=== PATIENT | male | born 1950 | race Caucasian/White ===

== ENCOUNTER 2017-09-13 18:43 | Emergency (ER) | payer MEDICARE, BC ==
[~2017-09-13] VITALS: Ht 177.8 cm; Wt 93.0 kg
[~2017-09-13 18:43] MED LIST: ALBUTEROL0.09 MG/A1 IH; ASPIRIN81 MG PO; BRILINTA90 M1 PO; LEVOFLOXACIN 7750 M1 PO; LIPITOR40 MG PO; LISINOPRIL5 MG NG; METOPROLOL25 MG PO; NAPROSYN 500MG500 MG PO; NEXIUM40 MG PO; NOMEDS; TRAMADOL 50MG T50 M1 PO; ZITHROMAX Z PA250 MG PO; ZITHROMAX Z-PA250 M1 PO
[2017-09-13] MEDS ORDERED: LISINOPRIL10 MG PO (18:52)
[2017-09-13] MEDS ORDERED: ATORVASTATIN CA80 MG PO (18:52)
--- OUTSIDE RECORDS SUMMARY | 2017-09-13 19:00 | External Medical Summary Rpt | CCD ---
Author Author [employer]ent Organization [employer] Address Unknown Phone Unavailable Purpose Continuity of Care Document - through 2016
--- OUTSIDE RECORDS SUMMARY | 2017-09-13 19:00 | External Medical Summary Rpt | CCD ---
Author Author , RUIZ MELCHOR Address Unknown Phone [email or web address] Care Team Providers Care City Constable Name Role Phone Glen Hansen MD, Unavailable Unavailable Glen Hansen MD Purpose Continuity of Care Document - 01-08-2014 through 2016 Problems Code Diagnosis DOS Provider Status 305.1 305.1 01-10-2014 [place] TOBACCO USE [facility] [place] [phone] 01-10-2014 [place] PNEUMONIA, [facility] NOS Allergies, Adverse Reactions, Alerts Type Allergy to substance Adverse Reaction to Substance Substance Reaction Severity NO KNOWN ALLERGIES Unknown Unknown Medications Na ND Rx Da Fi Fi Am Da Di Ph RX Ph St me C No te ll ll ou ys ag ar # ys at rm s nt no ma ic us Or Da si cy ia de te s n re d IN 49 02 0 No FL 28 -2 UE 10 0- Lo NZ 39 20 ng A 21 14 er 5 RU Ac S ti VA ve CC IN E 0. 5M L PN 00 02 0 No EU 00 -2 MO 64 0- Lo VA 94 20 ng X 30 14 er 23 0 Ac ti AL ve IP 00 02 1 No RA 48 -1 T- 70 9- Lo AL 20 20 ng BU 10 14 er T 1 0. Ac 5- ti 3( ve 2. 5) MG /3 ML LO 00 02 1 No VE 07 -1 NO 50 9- Lo X 62 20 ng 40 04 14 er 1 MG Ac /0 ti .4 ve ML SY RI NG E AZ 00 02 1 No IT 40 -1 HR 90 9- Lo OM 14 20 ng YC 41 14 er IN 1 Ac I. ti V. ve 50 0 MG AL CE 00 02 1 No FT 40 -1 RI 97 9- Lo AX 33 20 ng ON 30 14 er E 4 1 Ac GM ti ve AL SO 00 02 1 No DI 40 -1 UM 97 9- Lo 10 20 ng CH 16 14 er LO 6 RI Ac DE ti ve 0. 9% SO LN CE 00 02 1 No FT 40 -1 RI 97 8- Lo AX 33 20 ng ON 30 14 er E 4 1 Ac GM ti ve AL SO 00 02 1 No DI 40 -1 UM 97 8- Lo 10 20 ng CH 16 14 er LO 6 RI Ac DE ti ve 0. 9% SO LN Sa 63 02 1 No li 80 -1 ne 70 8- Lo 10 20 ng Fl 07 14 er us 5 h Ac 10 ti ML ve Sy ri ng e Vital Signs 01-10-2014 09:13 Name Value Interpretat Reference Comment ion Range Body 97.9 [degF] Temperature BP 80 mm[Hg] Diastolic BP Systolic 131 mm[Hg] Heart 76 /min Rate/Pulse Respiratory 20 /min Rate 01-10-2014 08:00 Name Value Interpretat Reference Comment ion Range O2% 96 % 01-08-2014 21:31 Name Value Interpretat Reference Comment ion Range Height 177.80 cm Weight 90.039 kg Measured 01-08-2014 18:46 Name Value Interpretat Reference Comment ion Range Body 99.4 [degF] Temperature BP 68 mm[Hg] Diastolic BP Systolic 131 mm[Hg] Heart 94 /min Rate/Pulse O2% 87 % Respiratory 20 /min Rate Weight 0 [oz_av] Measured Results Labs Lab Lab Date Result Refere Interp Status Commen Order Detail nces retati t Range on CBC with AUTO DIFF (01-09-2014 06:30) WBC # 01-09- 7.8 4.8-10. complet Bld 014 K/MM3 8 ed Auto 06:30 RBC # 01-09-2 5.00 4.6-6.2 complet Bld 014 M/mm3 ed Auto 06:30 Hgb 14.4 14.1-18 complet Bld-mCn 014 g/dL .0 ed c 06:30 Hct Fr 42.8 % 42.0-52 complet Bld 014 .0 ed 06:30 MCV RBC 85.7 fl 82.2-97 complet 014 .8 ed 06:30 MCH RBC 28.8 pg 27-31.2 complet Qn 014 ed Auto 06:30 MEAN 33.6 31.8-35 complet CORPUSC 014 g/dl .4 ed ULAR 06:30 HGB CONC RDW RBC -19-2 13.7 % 11.5-17 complet Auto 014 .5 ed 06:30 Platele 02-19-2 296 142-424 complet t Bld 014 K/mm3 ed Ql 06:30 Manual MEAN 19-2 7.9 fl 7.4-10. complet PLATELE 014 4 ed T 06:30 VOLUME Granulo -19-2 70.0 % 37.0-80 complet cytes 014 .0 ed Fr Bld 06:30 Auto LYMPH % 02-19-2 23.2 % 10-50 complet 014 ed 06:30 Monocyt 02-19-2 4.9 % 1.7-9.3 complet es Fr 014 ed Bld 06:30 Auto Eosinop 02-19-2 1.6 % 0.1-12. complet hil Fr 014 0 ed Bld 06:30 Auto Basophi 02-19-2 0.2 % 0.1-2.0 complet ls Fr 014 ed Bld 06:30 Auto Granulo -19-2 5.5 1.3-8.0 complet cytes # 014 K/mm3 ed Bld 06:30 Auto Lymphoc 02-19-2 1.8 0.7-4.5 complet ytes Fr 014 K/mm3 ed Bld 06:30 Auto Monocyt 02-19-2 0.4 0.1-1.0 complet es # 014 K/mm3 ed Bld 06:30 Auto Eosinop 02-19-2 0.1 0.0-0.4 complet hil # 014 K/mm3 ed Bld 06:30 Auto Basophi 02-19-2 0.0 0-0.2 complet ls # 014 K/MM3 ed Bld 06:30 Auto COMPREHENSIVE METABOLIC PANEL (01-08-2014 19:00) Glucose 18-2 104 74-106 complet 014 mg/dL ed Bld-mCn 19:00 c BUN 18-2 16 7-18 complet Bld-mCn 014 mg/dL ed c 19:00 Creat 18-2 1.1 0.8-1.3 complet SerPl-m 014 mg/dL ed Cnc 19:00 Creat 18-2 90 50-200 complet Cl 014 ML/MIN ed predict 19:00 ed SerPl C-G-vRa te GFR/BSA 68 Greater complet .pred 014 ML/MIN than ed SerPl 19:00 60 Schwart z-vRate Sodium 136 136-145 complet SerPl-s 014 mmoL/L ed Cnc 19:00 Potassi 4.1 3.5-5.1 complet um 014 mmoL/L ed SerPl-s 19:00 Cnc Chlorid 100 98-107 complet e 014 mmoL/L ed SerPl-s 19:00 Cnc CO2 28 21.0-32 complet SerPl-s 014 mmoL/L .0 ed Cnc 19:00 Calcium 8.4 8.5-10. complet 014 mg/dL 1 ed SerPl-m 19:00 Cnc Prot 7.0 6.4-8.2 complet SerPl-m 014 gm/dL ed Cnc 19:00 Albumin 01-08- 3.6 3.4-5.0 complet 014 gm/dL ed SerPl-m 19:00 Cnc Globuli 3.4 1.3-3.2 complet n 014 gm/dL ed Ser-mCn 19:00 c Albumin 01-08- 1.1 UNK 1.1-1.8 complet /Glob 014 ed SerPl-m 19:00 Rto Bilirub 0.7 0.2-1.0 complet 014 mg/dL ed SerPl-m 19:00 Cnc AST 01-08- 19 U/L 15-37 complet SerPl-c 014 ed Cnc 19:00 ALT 01-08- 36 U/L 12-78 complet SerPl-c 014 ed Cnc 19:00 ALP 01-08- 94 U/L 50-136 complet SerPl-c 014 ed Cnc 19:00 BNP Bld-mCnc (01-08-2014 19:00) BNP 18-2 Less 0-100 complet Bld-mCn 014 than 5 ed c 19:00 pg/mL CBC with AUTO DIFF (01-08-2014 19:00) WBC # 02-18-2 9.3 4.8-10. complet Bld 014 K/MM3 8 ed Auto 19:00 RBC # 02-18-2 4.81 4.6-6.2 complet Bld 014 M/mm3 ed Auto 19:00 Hgb 02-18-2 13.8 14.1-18 complet Bld-mCn 014 g/dL .0 ed c 19:00 Hct Fr 02-18-2 40.9 % 42.0-52 complet Bld 014 .0 ed 19:00 MCV RBC 02-18-2 85.0 fl 82.2-97 complet 014 .8 ed 19:00 MCH RBC 02-18-2 28.7 pg 27-31.2 complet Qn 014 ed Auto 19:00 MEAN 02-18-2 33.8 31.8-35 complet CORPUSC 014 g/dl .4 ed ULAR 19:00 HGB CONC RDW RBC -18-2 12.9 % 11.5-17 complet Auto 014 .5 ed 19:00 Platele 02-18-2 290 142-424 complet t Bld 014 K/mm3 ed Ql 19:00 Manual MEAN 18-2 8.2 fl 7.4-10. complet PLATELE 014 4 ed T 19:00 VOLUME Granulo 02-18-2 84.1 % 37.0-80 complet cytes 014 .0 ed Fr Bld 19:00 Auto LYMPH % 02-18-2 10.8 % 10-50 complet 014 ed 19:00 Monocyt 02-18-2 4.0 % 1.7-9.3 complet es Fr 014 ed Bld 19:00 Auto Eosinop 02-18-2 0.9 % 0.1-12. complet hil Fr 014 0 ed Bld 19:00 Auto Basophi 02-18-2 0.2 % 0.1-2.0 complet ls Fr 014 ed Bld 19:00 Auto Granulo 02-18-2 7.8 1.3-8.0 complet cytes # 014 K/mm3 ed Bld 19:00 Auto Lymphoc 02-18-2 1.0 0.7-4.5 complet ytes Fr 014 K/mm3 ed Bld 19:00 Auto Monocyt 02-18-2 0.4 0.1-1.0 complet es # 014 K/mm3 ed Bld 19:00 Auto Eosinop 02-18-2 0.1 0.0-0.4 complet hil # 014 K/mm3 ed Bld 19:00 Auto Basophi 0.0 0-0.2 complet ls # 014 K/MM3 ed Bld 19:00 Auto MYCOPLASMA IGM (RAPID) (01-08-2014 19:00) MYCOPLA NON-YOVANY NONREAC complet SMA IGM 014 CTIVE TIVE ed 19:00 (RAPID) Encounters Encounter Start End Date Code Location Performer Type Date Inpatient IMP Yasir Hansen MD ([place]) 4 18:59 4 09:15 [facility]
--- OUTSIDE RECORDS SUMMARY | 2017-09-13 19:00 | External Medical Summary Rpt | CCD ---
Author Author , RUIZ MELCHOR Address Unknown Phone [email or web address] Care Team Providers Care Account Installation Specialist Name Role Phone Glen Hansen MD, Unavailable Unavailable Glen Hansen MD Purpose Continuity of Care Document - 01-08-2014 through 2016 Problems Code Diagnosis DOS Provider Status 305.1 305.1 01-10-2014 [place] TOBACCO USE [facility] [phone] 01-10-2014 [place] PNEUMONIA, [facility] NOS Allergies, Adverse Reactions, Alerts Type Allergy [...] Hansen MD ([place]) 4 18:59 4 09:15 [facility]
--- OUTSIDE RECORDS SUMMARY | 2017-09-13 19:01 | External Medical Summary Rpt | CCD ---
Author Author , RUIZ MELCHOR Address Unknown Phone [email or web address] Immunization Name Date Rout CVX Reac Dose Comm Prov Is Faci e tion ent ider Refu lity Give sed n Infl 10-2 135 999 Hist D203 No D203 uenz 4-20 oric 45 45 a, 16 al High Info rmat Dose ion - Sour ce Unsp ecif ied PPV2 10-2 33 999 Hist D203 No D203 3 4-20 oric 45 45 16 al Info rmat ion - Sour ce Unsp ecif ied
--- OUTSIDE RECORDS SUMMARY | 2017-09-13 19:01 | External Medical Summary Rpt | CCD ---
Author Author , RUIZ MELCHOR Address Unknown Phone [email or web address] Immunization Name Date Rout CVX Reac Dose [...]
--- OUTSIDE RECORDS SUMMARY | 2017-09-13 19:01 | External Medical Summary Rpt ---
Author Author RUIZ Motta, [employer] Organization [employer] Address Unknown Phone Unavailable
[2017-09-13 19:21] LABS: HEMOGLOBIN 15.1 g/dL (14.1-18.0); LYMPH # 0.3 K/mm3 (0.7-4.5); LYMPH % 6.1 % (10-50)
--- NOTE | 2017-09-13 19:44 | Emergency Room Report ---
History of Present Illness Time Seen by [email or web address] Presenting Problem in Triage Pt arrived:Walked Presenting Problem:PT REPORTS LOWER ABD PAIN AND CRAMPING, DIARRHEA, NAUSEA, BODY ACHES. 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 Y Clinical Suspician of Infection? N Mental Status: 1 - Regular (Normal Baseline) Sepsis Risk:Possible Sepsis Risk Have you (or family members/close friends) recently traveled outside the [place]? N If Yes, where/when: Have you had exposure to infectious disease within the past month? N TB? Other? Specify: Source patient, RN notes reviewed, family, RN/MD Exam Limitations no limitations Comment This is a 67-year-old male patient presenting to the emergency room with muscle aches, low back pain, nausea, vomiting and diarrhea since last night. At this time the patient advised that he is unable to hold down any solid foods or liquids. Patient denies any recent travel or recent exposure to sick contacts. ALLERGIES Coded Allergies: No Known Allergies (10/21/15) Home Medications Reported Medications Aspirin 81 MG PO DAILY Lisinopril 10 MG PO QHS #90 Atorvastatin Calcium 80 MG PO QHS #90 History Medical History General CAD? No Angina: Yes ME: Yes Hypertension? Yes Hyperlipidemia? Yes CHF? No DVT? No PE? No COPD? No Asthma? No Anemia? No GERD? Yes Gastric ulcers? No GI Bleed? No Hernia? No Thyroid Problems? No Hypothyroidism? No CVA? No Seizures? No Diabetes? No Renal Insuffiency? No End Stage Renal Disease? No UTI? No Stones? No GB Disease: No Nephritic Syndrome? No Asplenia? No Hepatitis? No Sickle Cell Disease? No Arthritis? No Migraines? No Cataracts? No Glaucoma? No MRSA? No HIV? No TB? No Anxiety? No Depression? No Cancer? No More? No Immunization Hx DT/Tetanus Unknown Flu 2012-FSN Pneumonia 01/10/2014 Surgical Hx Previous Surgery?Y EXCISION OF CYST IN GROIN TONSILLECTOMY CARDIAC STENT R SHOULDER Family History Family Hx Diabetes No CAD Yes Hypertension Yes Hyperlipidemia Yes Cancer No TB No Social History Smoking Hx Smoker: Former Smoker Tobacco: No Packs/day < 1 Pack Alcohol Alcohol: No Review of Systems All Other Systems Reviewed and Negative Gastrointestinal see HPI, abdominal pain, diarrhea, nausea, vomiting Physical Exam Vital Signs Vital Signs Date Time Temp Pulse Resp B/P Pulse O2 O2 Flow FiO2 Ox Delivery Rate 09/13 2206 100.1 88 18 97/66 94 09/13 2205 100.1 88 18 97/66 94 09/13 2143 99.5 86 18 110/65 96 09/13 2053 86 14 131/79 94 09/13 2018 100.2 83 24 129/75 93 2 09/13 1957 20 09/13 1936 93 16 127/71 93 09/13 1847 99.4 101 20 143/107 94 General Appearance normal appearance, WD/WN, moderate distress Respiratory Status Yes: trachea midline, chest symmetrical, non tender chest. No: respiratory distress. Lung Sounds bilateral: normal breath sounds, lungs clear. Cardiovascular normal exam, regular rate/rhythm, no peripheral edema, no gallop, no JVD, no murmur, no rub, normal peripheral pulses Peripheral Pulses Pulses normal Yes Gastrointestinal normal bowel sounds, soft, no organomegaly, no guarding, no rebound, tenderness (LLQ) Extremities non-tender, normal range of motion, normal inspection Neurologic alert, normal exam, no motor/sensory deficits, oriented x 3 Mental status normal mood/affect Skin intact, normal color, warm/dry Medical Decision Making LABS/Meds/Orders Pt receiving controlled substance in ED? No Comment 20:00 - patient has episode of vomiting, will be rechecked his found to be febrile with a temperature of 103.7F. advise nurse to administer one dose of Tylenol. 2129 - upon patient's reevaluation he appears medically stable, clinically improving, not afebrile and with no further episodes of nausea/vomiting. Discussed with patient in length, advised of findings, as well as need for follow-up, if no better, within 2 days with PCP. Patient advised to alternate Motrin with Tylenol for fever control. Results/Orders Laboratory Tests 09/13/171901: Amylase 93, Lipase 414 H 09/13/171899: Sodium 139, Potassium 4.4, Chloride 105, Carbon Dioxide 25, BUN 22 H, Creatinine 1.0, Estimated Creat Clear 94, Estimated GFR (MDRD) 75, Glucose 111 H, Calcium 8.5, Total Bilirubin 0.9, AST 28, ALT 31, Alkaline Phosphatase 80, Total Protein 7.1, Albumin 4.0, Globulin 3.1, Albumin/Globulin Ratio 1.3, WBC 5.3, RBC 5.11, Hgb 15.1, Hct 45.5, MCV 89.0, RDW 12.9, Plt Count 167, MPV 8.5, Gran % 87.5 H, Gran # 4.6, Total Counted 100, Lymphocytes % 6.1 L, Monocytes % 4.2, Eosinophils % 1.9, Basophils % 0.3, Neutrophils 89 H, Lymphocytes (Manual) 9 L, Lymphocytes # 0.3 L, Monocytes # 0.2, Eosinophils # 0.1, Eosinophils # ( Manual) 2, Basophils # 0.0, Platelet Estimate NORMAL, Anisocytosis 1+, PUBS MCHC 33.1, MCH 29.5 09/13/17 1855: Influenza Type A Ag DETECTED H, Influenza Type B Ag NOT DETECTED 09/13/171853: Urine Color Cancelled, Urine Appearance Cancelled, Urine pH Cancelled, Ur Specific [place] Cancelled Current Medication Orders Sig/Murphy Start time Last Medication Dose Route Stop Time Status Admin Promethazine HCl 0 .STK-MED ONE 09/13 2156 DC PO Promethazine HCl 1 JOSELO ONCE ONE 09/13 2145 DC 09/13 PO 09/13 Oseltamivir Phosphate 75 MG ONCE ONE 09/13 2100 DC 09/13 PO 09/13 Iopamidol 75 ML ONCE ONE 09/13 2045 DCD 09/13 IV 09/13 Oseltamivir Phosphate 75 MG ONCE ONE 09/13 2045 DC 09/13 PO 09/13 Sodium Chloride 10 ML ONCE ONE 09/13 2045 DCD 09/13 IV 09/13 Oseltamivir Phosphate 0 .STK-MED ONE 09/13 2039 DC PO Acetaminophen 0 .STK-MED ONE 09/13 2032 DC PO Acetaminophen 1,000 MG ONCE ONE 09/13 2030 DC 09/13 PO 09/13 Morphine Sulfate 6 MG ONCE ONE 09/13 2000 DC 09/13 IV 09/13 Morphine Sulfate 0 .STK-MED ONE 09/13 1956 DC .ROUTE Diphenoxylate HCl/ 0 .STK-MED ONE 09/13 1950 DC Atropine PO Loperamide HCl 0 .STK-MED ONE 09/13 1950 DC PO Ondansetron HCl 0 .STK-MED ONE 09/13 1950 DC .ROUTE Sodium Chloride 1,000 ML .STK-MED ONE 09/13 1950 DC IV Diphenoxylate HCl/ 5 MG ONCE ONE 09/13 1945 DC 09/13 Atropine PO 09/13 Loperamide HCl 4 MG ONCE ONE 09/13 1945 DC 09/13 PO 09/13 Ondansetron HCl 4 MG ONCE ONE 09/13 1945 DC 09/13 IV 09/13 Sodium Chloride 1,000 ML .Q1H1M 09/13 1945 DC 09/13 IV 09/13 Sodium Chloride 10 ML PRN PRN 09/13 1945 DCD IV 09/14 1944 Sodium Chloride 10 ML PRN PRN 09/13 1900 DCD IV 09/14 1854 Orders Procedure Date/time Status DIET-NOTHING BY MOUTH 09/14 B Active VITAL SIGNS 09/[address] ABD & PELVIS W/ CONTRAST 09/[address] ABD/PELVIS REQ 09/13 2005 Complete LIPASE 09/13 1941 Complete AMYLASE 09/13 1941 Complete DIFFERENTIAL-WBC 09/13 1900 Complete IV SALINE LOCK 09/13 1854 Active INFLUENZA A&B ANTIGENS 09/13 1854 Complete CBC WITH AUTO DIFF 09/13 1854 Complete CHEM 12 PROFILE 09/13 1854 Complete XRAY/CT/US XRAY/CT/US CT abdomen, pelvis (with IV contrast) CT interpretation by discussed w/radiologist CT Results see virtual radiology report Departure Departure Time of Disposition 2139 Disposition DC Home or Self Care(routine) Clinical Impression Primary Impression: Influenza A Condition STABLE Patient Instructions DI for Influenza -- Adult Additional Instructions Please drink plenty of fluids, take [id number] Imodium for diarrhea, Zofran ODT (prescription attached) as needed for nausea/vomiting. If not better please follow-up with your family physician within the next 2 days. Discharge Counseling Counseled pt/family regarding diagnosis, test results, medications/RX, home care, follow up needs Comment Please drink plenty of fluids, take [id number]-[id number] Imodium for diarrhea, Zofran ODT (prescription attached) as needed for nausea/vomiting. If not better please follow-up with your family physician within the next 2 days. Prescriptions Current Visit Scripts Ondansetron (Zofran 4MG Odt) 4 MG PO Q6HP PRN NAUSEA AND VOMITING #28 ODT Oseltamivir Phosphate (Tamiflu 75MG Capsule) 75 MG PO BID #9 CAP ED Critical Care Critical Care No at 0300
[2017-09-13 20:20] LABS: NEUTROPHILS 89 % (42-76)
[2017-09-13] MEDS ORDERED: ZOFRAN ODT4 MG PO (21:42)
[2017-09-13] MEDS ORDERED: TAMIFLU 75MG CA75 MG PO (21:46)
[2017-09-13 22:06] VITALS: BP 97/66
--- NOTE | 2017-09-14 08:57 | RADIOLOGY REPORT PS360 ---
CT ABD PELVIS W/ CONTRAST CLINICAL INDICATION: NAUSEA, VOMITING, DIARRHEA, ABDOMINAL PAIN ORDERING PHYSICIAN: Sarbjit Bruno MD PATIENT AGE: 67 years COMPARISON: None TECHNIQUE: Axial images obtained with sagittal and coronal reformats. PROCEDURE: Oral Contrast: None IV Contrast: 75 mL's Isovue-370. FINDINGS: Lower thorax: Coronary artery calcifications are present. Calcified granulomas present in the left lower lobe. ABDOMEN: Liver: No masses or biliary dilatation. Gallbladder: Nondistended. No radio opaque stones. Pancreas: No masses or peripancreatic fluid collections. Spleen: Unremarkable. Adrenals: Unremarkable Kidneys/ureters: No masses. No renal calculi. No hydronephrosis. No perinephric fluid collections. Parapelvic left renal cysts No ureteral dilatation or obvious ureteral calculi. Stomach bowel: Nondistended. No obvious mass or thickening. Colonic diverticulosis. No evidence of diverticulitis Appendix: No evidence of appendicitis. PELVIS: Reproductive: Unremarkable Bladder: Nondistended. No obvious stones or masses. ABDOMEN & PELVIS: Peritoneum: No abnormal fluid collections. No obvious inflammatory changes. No free air. Lymph nodes: No enlarged lymph nodes apparent. Vasculature: No evidence of abdominal aortic aneurysm. No retroperitoneal hemorrhage evident. Bones: No acute fracture. Degenerative changes are present in the lumbar spine and in the hips IMPRESSION: 1. No acute intra-abdominal or pelvic pathology apparent. 2. Nonacute findings as described above with colonic diverticulosis. 3. Coronary artery disease
== END 2017-09-13 22:07 | disposition home or self-care (01) ==
LOC: ER 18:43
PROVIDERS: Emergency Medicine
DX: J10.1 Influenza due to other identified influenza virus with other respiratory manifestations (principal); Z87.891 Personal history of nicotine dependence; K21.9 Gastro-esophageal reflux disease without esophagitis; I10 Essential (primary) hypertension; Z79.82 Long term (current) use of aspirin
CPT/HCPCS: J2405; Q9967